=== PATIENT | female | born 1965 | race Two or more races ===

== ENCOUNTER 2017-11-25 12:15 | Emergency (ER) | payer OTHER ==
[~2017-11-25] VITALS: Ht 157.5 cm; Wt 88.5 kg
[~2017-11-25 12:15] MED LIST: TRAM1TAB98 PO
[2017-11-25] MEDS ORDERED: NEURONTIN600 MG (12:36)
== END 2017-11-25 21:37 | disposition home or self-care (01) ==
LOC: ER 12:15
DX: R10.31 Right lower quadrant pain (principal)